=== PATIENT | male | born 1940 | race Caucasian/White ===

== ENCOUNTER 2017-10-24 08:29 | Day surgery (SDC) | payer MEDICARE, OTHER ==
[~2017-10-24] VITALS: Ht 190.5 cm; Wt 104.5 kg
[~2017-10-24 08:29] MED LIST: ASPI-183 PO; ATOR40TA16 PO; DOXA1TAB36 PO; LOSA50TA PO; MAGN500T2 PO; METO50TA PO; VITA500T4 PO
[2017-10-24 08:47] VITALS: BP 157/102; PULSE 63; RESP 20; TEMP 98; O2SAT 98
[2017-10-24] MEDS ORDERED: SODIUM CHLORIDE FLUSH PRN IV FLUSH (09:15)
[2017-10-24] MEDS ORDERED: SODIUM CHLOR 0.9% 1000 ML IV SCH (09:30)
[2017-10-24 09:32] LABS: AUTOMATED NEUTROPHIL # 5.1 TH/MM3 (1.8-7.7); BASOPHIL % 0.4 % (0.0-2.0); EOSINOPHIL # 0.3 TH/MM3 (0-0.4); EOSINOPHIL % 3.7 % (0.0-4.0); HEMATOCRIT 35.7 % (39.0-51.0); HEMOGLOBIN 12.1 GM/DL (13.0-17.0); LYMPH % 15.8 % (9.0-44.0); LYMPHOCYTE # 1.1 TH/MM3 (1.0-4.8); MEAN CELL VOLUME 91.9 FL (80.0-100.0); MEAN CORPUSCULAR HEMOGLOBIN 31.1 PG (27.0-34.0); MEAN CORPUSCULAR HGB CONC 33.8 % (32.0-36.0); MEAN PLATELET VOLUME 9.1 FL (7.0-11.0); MONO % 9.2 % (0.0-8.0); MONOCYTE # 0.7 TH/MM3 (0-0.9); NEUT % 70.9 % (16.0-70.0); PLATELET COUNT 173 TH/MM3 (150-450); RED BLOOD COUNT 3.89 MIL/MM3 (4.50-5.90); RED CELL DISTRIBUTION WIDTH 13.5 % (11.6-17.2); WHITE BLOOD COUNT 7.1 TH/MM3 (4.0-11.0)
[2017-10-24] MEDS ORDERED: MIDAZOLAM HCL 2 MG/2 ML VIAL ONE (10:13)
[2017-10-24] MEDS ORDERED: LIDOCAINE HCL 1% 20 ML VIAL ONE (10:18)
--- NOTE | 2017-10-24 11:22 | PD.RAD ---
Post CT Procedure Prog Note Pre Procedure Diagnosis: (1) Anemia Post Procedure Diagnosis: (1) Anemia Procedure Date: Oct 24, 2017 Supervising Radiologist: Jamie Ramesh JR Anesthesia: Conscious Sedation Plan of Activity Patient to Unit: [facility] Patient Condition: Good See PACS Report for procedural detail/treatment Biopsy Imaging Guidance: CT Side: Left Biopsy Procedure: Bone Marrow Specimen: Core Biopsy, Fine Needle Aspirate Findings: Good core and aspirate of left iliac marrow. Jr. Gadiel,Jamie Urias MD Oct 24, 2017 11:22
[2017-10-24 11:30] VITALS: BP 122/64; PULSE 60; RESP 20; TEMP 97.4; O2SAT 97
[2017-10-24 11:45] VITALS: BP 158/68; PULSE 68; RESP 20; O2SAT 97
[2017-10-24 12:15] VITALS: BP 131/72; PULSE 62; RESP 20; O2SAT 96
[2017-10-24 12:45] VITALS: BP 129/69; PULSE 60; RESP 20; O2SAT 97
[2017-10-24 13:15] VITALS: BP 140/75; PULSE 67; RESP 20; O2SAT 97
--- NOTE | 2017-10-24 14:02 | RADRPT ---
EXAM DATE/TIME: 10/24/2017 10:48 [facility] COMPARISON: No previous studies available for comparison. INDICATIONS : Monoclonal gammopathy and anemia. SEDATION TIME: 20 minutes BIOPSY SITE: Left ilium. MEDICATION(S): 1.) 4 mg midazolam (Versed) IV 2.) 200 mcg fentanyl (Sublimaze) IV DEVICE(S): 1.) 12 gauge Bone marrow biopsy needle MEDICAL HISTORY : Cardiovascular disease. Diabetes mellitus type 2. Hypertension. Chronic kidney disease, coronary foreign ry disease. SURGICAL HISTORY : CABG ENCOUNTER: Initial ACUITY: 1 day PAIN SCORE: 0/10 LOCATION: Left pelvis A total of two core specimen(s) were obtained and sent to the laboratory for pathologic evaluation. PROCEDURE: 1. CT guided bone marrow biopsy. Prior to the procedure informed consent was obtained. Any appropriate prior imaging studies were rev iewed. Using automated exposure control and adjustment of the mA and/or kV according to patient size , radiation dose was kept as low as reasonably achievable to obtain optimal diagnostic quality images . DICOM format image data is available electronically for review and comparison. The site was prepped in a sterile fashion. Full sterile technique was used, including cap, mask, santana rile gloves and gown and a large sterile sheet. Hand hygiene and 2% chlorhexidine and/or betadine/al cohol prep was utilized per protocol for cutaneous antisepsis. The skin and subcutaneous tissues wer e infiltrated with local anesthetic solution. With CT guidance the previously identified target was localized. Biopsy was performed using the presc ribed needle as above. Following biopsy marrow aspiration was performed with repeat puncture. Adequa te hemostasis was obtained with compression at the puncture site. Follow-up CT scan reveals no hemorrhage. Conscious sedation was performed with the prescribed dosages and duration as above in the presence of an independent trained radiology nurse to assist in the monitoring of the patient. EKG and oximetry remained stable throughout the procedure. The patient tolerated the procedure well and there were no complications. The patient was sent to Radiology Outpatient Unit in stable condition. CONCLUSION: 1. Uncomplicated CT guided bone marrow aspirate. 2. Uncomplicated CT guided bone marrow biopsy. Jamie Ramesh Jr., MD on October 24, 2017 at 14:00 Board Certified Radiologist. This report was verified electronically.
[2017-10-24] MEDS ORDERED: SODIUM CHLORIDE FLUSH BID IV FLUSH SCH (21:00)
== END 2017-10-24 13:30 | disposition home or self-care (01) ==
LOC: HRAD 08:29 → HRIP 08:31 → HRAD 13:30
PROVIDERS: ATTEND Internal Medicine
DX: D64.9 Anemia, unspecified (principal); D47.2 Monoclonal gammopathy; I12.9 Hypertensive chronic kidney disease with stage 1 through stage 4 chronic kidney disease, or unspecified chronic kidney disease; N18.9 Chronic kidney disease, unspecified; E11.22 Type 2 diabetes mellitus with diabetic chronic kidney disease; I25.10 Atherosclerotic heart disease of native coronary artery without angina pectoris; Z95.1 Presence of aortocoronary bypass graft
CPT/HCPCS: 38221; 77012; 85025; 85097; 88184; 88185; 88237; 88264; 88280; 88305; 88311; 88313; 88341; 88342; 88377; 99152; 99153; C1830; G0364; J2250; J3010; J7030